=== PATIENT | female | born 1940 ===

== ENCOUNTER → 2023-03-09 | Outpatient (CLI) | payer MEDICARE ==
[2023-03-09 20:55] LABS: Adenovirus F 40/41 Not Detected (NOT DETECT); Astrovirus Not Detected (NOT DETECT); Campylobacter Sp Not Detected (NOT DETECT); Cryptosporidium Not Detected (NOT DETECT); Cyclospora Cayetanensis Not Detected (NOT DETECT); E. Coli O157 Not Detected (NOT DETECT); Entamoeba Histolytica Not Detected (NOT DETECT); Enteroaggregative E. coli-EAEC Not Detected (NOT DETECT); Enteropathogenic E. coli-EPEC Not Detected (NOT DETECT); Enterotoxigenic E. coli-ETEC Not Detected (NOT DETECT); Giardia Lamblia Not Detected (NOT DETECT); Norovirus GI/GII Not Detected (NOT DETECT); Plesiomonas Shigelloides Not Detected (NOT DETECT); Rotavirus A Not Detected (NOT DETECT); Salmonella Sp Not Detected (NOT DETECT); Sapovirus Not Detected (NOT DETECT); Shiga Toxin-prod E. coli-STEC Not Detected (NOT DETECT); Shigella/Enteroin E. coli-EIEC Not Detected (NOT DETECT); Vibrio Cholerae Not Detected (NOT DETECT); Vibrio Sp Not Detected (NOT DETECT); Yersinia Enterocolitica Not Detected (NOT DETECT)
== END ==
LOC: LAB 18:25 → LAB SHORT 18:25
PROVIDERS: Internal Medicine
DX: A06.1 Chronic intestinal amebiasis (principal)
CPT/HCPCS: 87507

== ENCOUNTER → 2023-05-14 | Outpatient (CLI) | payer MEDICARE ==
[2023-05-14 14:25] LABS: Stool Occult Bld Immuno 1 Negative (NEGATIVE)
== END | disposition home or self-care (01) ==
LOC: LAB 12:57 → LAB SHORT 12:57
PROVIDERS: Internal Medicine
DX: D53.9 Nutritional anemia, unspecified (principal)
CPT/HCPCS: 82274

== ENCOUNTER 2023-05-27 19:42 | Emergency (ER) | payer OTHER, MEDICARE ==
[~2023-05-27] VITALS: Ht 160 cm; Wt 49.9 kg
[2023-05-27 19:51] VITALS: BP 145/75
[2023-05-27] MEDS ORDERED: TRAM50 (20:35)
[2023-05-27] MEDS ORDERED: TRAZ50 PO (20:35)
[2023-05-27] MEDS ORDERED: AMLODIPINE BES2.5 MG PO (20:35)
[2023-05-27] MEDS ORDERED: DULOXETINE HCL60 M1 PO (20:36)
[2023-05-27] MEDS ORDERED: LOSARTAN POTASS25 M2 PO (20:36)
== END 2023-05-27 21:07 | disposition home or self-care (01) ==
LOC: ER 19:42
DX: M25.532 Pain in left wrist (principal); W01.0XXA Fall on same level from slipping, tripping and stumbling without subsequent striking against object, initial encounter; Z79.899 Other long term (current) drug therapy; S60.212A Contusion of left wrist, initial encounter
CPT/HCPCS: 73110; 96372; 99283-25; J1885

== ENCOUNTER → 2023-06-23 | Outpatient (CLI) | payer MEDICARE ==
[~2023-06-23] MED LIST: AMLODIPINE BES2.5 MG PO; DULOXETINE HCL60 M1 PO; LOSARTAN POTASS25 M2 PO; TRAM50; TRAZ50 PO
== END | disposition home or self-care (01) ==
LOC: LAB 10:45 → LAB SHORT 10:45
DX: N39.0 Urinary tract infection, site not specified (principal)
CPT/HCPCS: 87086; 87147